=== PATIENT | male | born 1985 | race American Indian/Alaskan Native ===

== ENCOUNTER 2016-08-18 20:34 | Emergency (ER) | payer SELFPAY ==
[2016-08-18 21:21] VITALS: BP 139/95
[2016-08-18] MEDS ORDERED: MOTRIN PO ONE (21:22)
== END 2016-08-19 02:30 | disposition left against medical advice (07) ==
LOC: ED 20:34
DX: M54.9 Dorsalgia, unspecified (principal); Z53.21 Procedure and treatment not carried out due to patient leaving prior to being seen by health care provider